=== PATIENT | male | born 1955 | race Caucasian/White ===

== ENCOUNTER 2016-05-03 20:11 | Emergency (ER) | payer BC ==
[~2016-05-03] VITALS: Ht 180.3 cm; Wt 138.3 kg
[~2016-05-03 20:11] MED LIST: ASPIR 8181 M1 PO; ASPIR-LOW81 MG PO; B-12500 MC1 SL; CENTRUM SILVER1 EAC1 PO; CENTRUM SILVER1 EAC3 PO; COZAAR50 MG PO; FENOFIBRATE160 M1 PO; LOSARTAN POTASS50 MG PO; MECLIZINE HCL25 MG PO; NAPROSYN500 MG PO; TRICOR145 MG PO; VIAGRA100 MG PO; VITAMIN B122500 MCG PO; VITAMIN D31000 UNI2 PO; VITAMIN D31000 UNIT PO
[2016-05-03 21:45] LABS: HEMATOCRIT 41.9 % (38.0-50.0); MCH 29.4 PG (29.0-34.0); MCHC 34.1 G/DL (30.0-36.0); MEAN PLAT.VOLUME 10.6 uM^3 (9.0-12.4); PLATELET COUNT 207 K/uL (156-360); RBC DIS.WIDTH-SD 43.2 % (39-53); RED BLOOD COUNT 4.87 M/uL (4.00-5.50); WHITE BLOOD COUNT 7.3 K/uL (4.1-10.2)
[2016-05-03 22:04] LABS: CHLORIDE 106 mEq/L (99-109); POTASSIUM 3.8 mEq/L (3.7-5.4); SODIUM 138 mEq/L (136-147)
[2016-05-03 22:07] LABS: GLUCOSE 133 mg/dL (70-99)
[2016-05-03 22:08] LABS: INFLUENZA A VIRAL ANTIGEN NEGATIVE; INFLUENZA B VIRAL ANTIGEN NEGATIVE
[2016-05-03 22:08] LABS: ANION GAP 12 MEQ/L (2-14); TOTAL BILIRUBIN 0.4 mg/dL (0.0-1.0)
[2016-05-03 22:10] LABS: ALKALINE PHOSPHATASE 68 IU/L (3-129); GFR ESTIMATE (CALCULATED) > 59 mL/min/
[2016-05-03 22:11] LABS: UREA NITROGEN (BUN) 12 mg/dL (9-23)
[2016-05-03 22:14] LABS: LIPASE 17 U/L (1.0-51.0)
[2016-05-03] MEDS ORDERED: CIPRO500 MG PO (22:22)
[2016-05-03] MEDS ORDERED: ZOFRAN4 MG PO (22:24)
[2016-05-03 22:30] VITALS: BP 146/89
== END 2016-05-03 22:31 | disposition home or self-care (01) ==
LOC: EME 20:11
PROVIDERS: Physician Assistant
DX: B34.9 Viral infection, unspecified (principal); R10.9 Unspecified abdominal pain; I10 Essential (primary) hypertension; Z79.82 Long term (current) use of aspirin
CPT/HCPCS: 80053; 83690; 85027; 87502; 99281; 99283